=== PATIENT | female | born 1985 | race Asian ===

== ENCOUNTER 2023-10-01 17:41 | Emergency (ER) | payer OTHER, SELFPAY ==
[2023-10-01 17:43] VITALS: BP 126/79
--- NOTE | 2023-10-01 18:34 | ED.GENMED ---
History of Present Illness
<Taisha Ferrera PA-C - Last Filed: 10/02/23 00:12>
General
Chief Complaint: Vaginal Bleeding
Source: patient
Exam Limitations: none
Time Seen by Provider: 10/01/23 18:34
Nursing documentation reviewed up to this point in time: agreed with
Travel History
Have you had any contact with someone who has COVID-19?: No
Do you have any symptoms of coronavirus? Fever > 100 degrees, chills, cough, shortness of breath, sore throat, loss of taste or smell, muscle aches, or headache?: No
History of Present Illness
History of Present Illness:
Patient is a 38-year-old female at presumed 6 weeks gestation presenting for evaluation of vaginal bleeding. Patient states that she has had light vaginal bleeding for the past 3 weeks which she initially thought was the onset of her menses.
Patient states that bleeding is light in quantity and not saturating through pads. She then over the past week developed mild nausea in the morning and some lower abdominal cramping. She took an at home test this past Thursday which was
positive. She called her CONCEPT ARTIST who scheduled her for 3 weeks.
Patient denies any significant nausea or vomiting. Patient denies any fever, chills. Patient denies any chest pain, shortness of breath, dizziness. Patient denies any urinary symptoms.
Patient states that her last menstrual period was mid August. Patient denies any history of STI/STDs
Patient has had 1 many years ago with a section delivery. She has had 1 miscarriage in 2016 at around 4 weeks gestation.
Patient has followed with [facility] CONCEPT ARTIST in the past.
Past History
<Taisha Ferrera PA-C - Last Filed: 10/02/23 00:12>
Past History
ED Past Medical History: None
ED Past Surgical History:
Social History
Tobacco: Non-smoker
Alcohol: None
Drug: None
Personal:
Living: with family
Employment: Employed
Family History
Family History: Other (Noncontributory)
Review of Systems
<Taisha Ferrera PA-C - Last Filed: 10/02/23 00:12>
Review of Systems
Allergies reviewed?: Yes
All Other Systems: ROS reviewed and negative except as documented in HPI and ROS
Phy Exam
<Taisha Ferrera PA-C - Last Filed: 10/02/23 00:12>
Physical Exam
Physical Exam:
Vitals: Patient's vital signs are stable. Afebrile
General: Patient is well appearing, no acute distress
Skin: Warm and dry, no rashes or lesions
Head: Normocephalic, atraumatic
Eyes: Sclera nonicteric. EOMs intact. No nystagmus. Moist mucous membranes.
Throat: Protecting airway
Neck: Normal ROM, no cervical spine tenderness, no meningismus
Cardiac: Regular rate and rhythm, no murmurs.
Pulm: Normal respiratory effort, no wheezes, rales, rhonchi heard on exam.
Abdomen: Abdomen soft. Very mild suprapubic tenderness without rebound tenderness or guarding. No CVA tenderness
Extremities: No evidence of cyanosis or edema. DP pulses palpable and equal bilateral
Neuro: AAOx3. CN II-XII intact. No focal neurologic deficits.
Psychiatric: Normal affect.
Course
<Taisha Ferrera PA-C - Last Filed: 10/02/23 00:12>
Orders/Labs/Results
Orders:
Orders
10/01/23 18:40
Test Result ONCE
10/01/23 18:47
Type+Screen Urgent
Beta HCG Quantitative Urgent
Is this a screen?: No
Comment: ADD ON
Beta Hcg Serum Qualitative Screen [HCG, Serum Qualitative Screen] Urgent
Complete Blood Count/With Diff Urgent
Comprehensive Metabolic Panel Urgent
10/01/23 19:32
0.9% Sodium Chloride 1000 ml [Nss] 1,000 ml IV BOLUS
10/01/23 19:36
US W Transvaginal Urgent
Comment: approx 4-6 weeks by LMP
Reason For Exam: vaginal bleeding, lower abdomen pain
10/01/23 19:39
Add On- LAB Urgent
Tests Added?: HCG Quantitative
Abnormal Lab Results
10/01/23
18:47
RBC 3.64 L 10^6/uL
(4.20-5.40)
Hgb 11.1 L g/dL
(12.0-16.0)
Hct 32.8 L %
(37.0-47.0)
MPV 11.0 H fL
(7.4-10.4)
Creatinine 0.5 L mg/dL
(0.6-1.0)
10/01/23 18:47
10/01/23 18:47
Vital Signs
Initial and Last Documented VS:
Initial Vital Signs
Temp Pulse Resp BP Pulse Ox
98.3 F 80 16 126/79 100
10/01/23 17:43 10/01/23 17:43 10/01/23 17:43 10/01/23 17:43 10/01/23 17:43
Last Documented Vital Signs
Temp Pulse Resp BP Pulse Ox
98.3 F 74 18 109/68 100
10/01/23 17:43 10/01/23 21:27 10/01/23 21:27 10/01/23 21:27 10/01/23 21:27
Sarahlt;Rich Nam, DO - Last Filed: 10/01/23 23:30>
Orders/Labs/Results
Orders:
Orders
10/01/23 18:40
Test Result ONCE
10/01/23 18:47
Type+Screen Urgent
Beta HCG Quantitative Urgent
Is this a screen?: No
Comment: ADD ON
Beta Hcg Serum Qualitative Screen [HCG, Serum Qualitative Screen] Urgent
Complete Blood Count/With Diff Urgent
Comprehensive Metabolic Panel Urgent
10/01/23 19:32
0.9% Sodium Chloride 1000 ml [Nss] 1,000 ml IV BOLUS
10/01/23 19:36
US W Transvaginal Urgent
Comment: approx 4-6 weeks by LMP
Reason For Exam: vaginal bleeding, lower abdomen pain
10/01/23 19:39
Add On- LAB Urgent
Tests Added?: HCG Quantitative
Abnormal Lab Results
10/01/23
18:47
RBC 3.64 L 10^6/uL
(4.20-5.40)
Hgb 11.1 L g/dL
(12.0-16.0)
Hct 32.8 L %
(37.0-47.0)
MPV 11.0 H fL
(7.4-10.4)
Creatinine 0.5 L mg/dL
(0.6-1.0)
10/01/23 18:47
10/01/23 18:47
Vital Signs
Initial and Last Documented VS:
Initial Vital Signs
Temp Pulse Resp BP Pulse Ox
98.3 F 80 16 126/79 100
10/01/23 17:43 10/01/23 17:43 10/01/23 17:43 10/01/23 17:43 10/01/23 17:43
Last Documented Vital Signs
Temp Pulse Resp BP Pulse Ox
98.3 F 74 18 109/68 100
10/01/23 17:43 10/01/23 21:27 10/01/23 21:27 10/01/23 21:27 10/01/23 21:27
<Taisha Ferrera PA-C - Last Filed: 10/02/23 00:12>
MDM/Problems Addressed
Differential Diagnosis Includes:
Not limited to: Threatened , missed , ectopic , subchorionic hemorrhage, complete
MDM/Problems Addressed:
Patient is a 38-year-old female at an estimated 6 weeks gestation presenting with persistent light vaginal bleeding and lower abdominal cramping. No fever, chills, chest pain, shortness of breath, dizziness/lightheadedness. Vital signs are stable.
Physical exam as above. Patient is extremely well-appearing in no apparent distress. She does have very mild suprapubic tenderness without any rebound tenderness or guarding. Labs show very mild anemia with hemoglobin of 11.1 which appears
chronic for patient. Otherwise no clinically significant abnormalities. hCG level of greater than 100,000. Ultrasound shows intrauterine at an estimated gestation of 7 weeks 3 days with a heart rate of 136. They did notice small 7 mm
subchorionic hemorrhage. This is likely the cause of the mild spotting. Patient's blood type is be positive-no indication for RhoGAM at this time.
Patient stable for discharge with CONCEPT ARTIST follow-up. Will instruct patient to refrain from heavy lifting and adhere to pelvic rest. Return precautions discussed at length. Patient will follow-up with CONCEPT ARTIST tomorrow.
Chronic conditions affecting care:
N/A
Acute Exacerbation and/or Progression of Chronic Illness:
N/A
<Taisha Ferrera PA-C - Last Filed: 10/02/23 00:12>
*Radiology
Radiology exam reviewed: radiology read reviewed
*Pulse Oximetry
Patient hypoxic: no
*EKG
Interpreted by ED Provider?: NA
*Vending Machine Mechanic Interpretation
Rate: Vending Machine Mechanic- N/A
*Critical Care Note
Total Time (30-74mins, 75-104mins- exclusive of procedures): Not Applicable
ED Attending Note
<Taisha Ferrera PA-C - Last Filed: 10/02/23 00:12>
-
Portions of this chart may have been created with voice recognition software.� Occasional wrong word or��sound alike� substitutions may have occurred due to the inherent limitations of voice recognition software.
<Rich Nam DO - Last Filed: 10/01/23 23:30>
ED Attending Note
Patient seen and examined by attending physician: Yes
I performed the substantive portion of visit, reviewed & personally made and approve the management plan that is documented in note by myself or ARMANDO.: Yes
ED Attending Note:
Patient is a 38-year-old female who is 3 para 1-0-1-1 who presents with lower abdominal pain and vaginal bleeding. Patient's had a positive test. Patient last period was August 08. Patient's been having spotting and cramping since
that time. Patient denies fever or chills, weakness or lightheadedness. Patient has minimal nausea but no vomiting or diarrhea. Patient denies any symptoms. On physical exam patient does not appear to be in any distress. Heart is regular
lungs are clear. Patient has minimal lower abdominal tenderness without guarding or rebound. Patient's quantitative hCG is over 100,000. Patient's ultrasound shows a subchorionic hemorrhage. Patient will be discharged to follow-up with her
mainframe systems programmer. Patient blood type is B+. Patient will be told no heavy lifting or vaginal intercourse.
Discharge Plan
Departure
Patient Disposition: Home (Routine Discharge)
Date of Disposition: 10/01/23
Time of Disposition: 22:32
Patient with high blood pressure during this ER visit?: No
Condition: Good
Covid-19: Not Applicable
Discharge Problem:
Vaginal bleeding in , Subchorionic hemorrhage in first trimester
Instructions: Bleeding in Early (DC), Subchorionic Bleeding
Prescriptions:
No Action
[facility]
amoxicillin-pot clavulanate 875 MG/125 MG tablet
1 tab PO Q12 Qty: 20 0RF
Referrals:
Ariane Mccauley MD [Active] - Next open appointment
Nicola Roach MD [Family Provider] -
Activity Restrictions/Additional Instructions:
RETURN TO THE EMERGENCY DEPARTMENT WITH ANY WORSENING VAGINAL BLEEDING, SEVERE ABDOMINAL PAIN, INTRACTABLE NAUSEA/VOMITING, DIZZINESS, LIGHTHEADEDNESS, SHORTNESS OF BREATH, WORSENING IN CURRENT SYMPTOMS, OR ANY OTHER CONCERNS
-it is important to stay well-hydrated. Monitor your symptoms closely and return promptly with any acute worsening or change in symptoms. You can take Tylenol for any discomfort.
-As discussed�it is imperative that you follow-up with your CONCEPT ARTIST promptly for further evaluation/management. You should call them tomorrow for earliest appointment.
Interventions
Interventions:
*Risk Screen - Suicide Last Done: 10/01/23 19:46
*General Assessment Last Done: 10/01/23 19:46
*Neglect/Abuse Screening Last Done: 10/01/23 19:46
ED- Fall Risk Assessment Last Done: 10/01/23 19:48
*ED COVID-19 Vaccine History Last Done: 10/01/23 19:46
*Nursing Disposition Last Done: 10/01/23 22:42
ED-Female Genitourinary Assessment Last Done: 10/01/23 18:51
Discharge Date and Time
Discharge Date/Time: 10/01/23 22:43
Print Language: ROMANIAN
[2023-10-01 18:58] LABS: % Basophils 0.3 % (0-2); % Eosinophils 0.8 % (0-6); % Immature Granulocytes 0.2 % (0-0.5); % Lymphocytes 25.2 % (20.5-51.1); % Monocytes 6.3 % (1.7-9.3); % Neutrophils 67.2 % (42.2-75.2); Absolute Eosinophils 0.1 10^3/uL (0-0.7); Absolute Lymphocytes 1.6 10^3/uL (1.2-3.4); Absolute Monocytes 0.4 10^3/uL (0.1-0.6); Absolute Neutrophils 4.3 10^3/uL (1.4-6.5); Hematocrit 32.8 % (37.0-47.0); Hemoglobin 11.1 g/dL (12.0-16.0); Mean Corp Hgb Conc. 33.8 g/dL (33.0-37.0); Mean Corpuscular Hgb 30.5 pg (27.0-31.0); Mean Corpuscular Volume 90.1 fL (81.0-99.0); Nucleated Red Blood Cells % 0 %; Platelet Count 162 10^3/uL (130-400); Red Blood Cell Count 3.64 10^6/uL (4.20-5.40); Red Cell Dist. Width 11.6 % (11.5-14.5); White Blood Cell Count 6.5 10^3/uL (4.8-10.8)
[2023-10-01 19:16] LABS: HCG, Serum Qualitative Screen Positive
[2023-10-01 19:18] LABS: ALT (SGPT) 17 U/L (0-35); AST (SGOT) 26 U/L (14-36); Albumin 4.5 g/dl (3.5-5.0); Alkaline Phosphatase 43 U/L (38-126); Blood Urea Nitrogen 10 mg/dl (7-17); Calcium 9.8 mg/dl (8.4-10.2); Carbon Dioxide 23 mmol/L (22-30); Chloride 103 mmol/L (98-107); Glucose 89 mg/dl (70-99); Potassium 3.7 mmol/L (3.5-5.1); Sodium 136 mmol/L (135-145); Total Bilirubin 0.4 mg/dl (0.2-1.3); Total Protein 7.8 g/dl (6.3-8.2); eGFR > 60.00
[2023-10-01] MEDS: NSS 1000 IV (19:44)
[2023-10-01 19:46] VITALS: BMI 24.2
[2023-10-01 21:27] VITALS: BP 109/68
== END 2023-10-01 22:43 | disposition home or self-care (01) ==
LOC: EMR 17:41
PROVIDERS: Physician Assistant; EMERGENCY PHYSICIAN Emergency Medicine; FAMILY PHYSICIAN Internal Medicine
DX: O26.891 Other specified pregnancy related conditions, first trimester (principal); O20.8 Other hemorrhage in early pregnancy; Z3A.01 Less than 8 weeks gestation of pregnancy; O99.011 Anemia complicating pregnancy, first trimester; O99.281 Endocrine, nutritional and metabolic diseases complicating pregnancy, first trimester; R10.30 Lower abdominal pain, unspecified; E03.9 Hypothyroidism, unspecified; Z87.440 Personal history of urinary (tract) infections; Z88.2 Allergy status to sulfonamides; Z88.8 Allergy status to other drugs, medicaments and biological substances
CPT/HCPCS: 99284; 76801; 76817; 80053; 84702; 84703; 85025; 86850; 86900; 86901

== ENCOUNTER 2024-08-22 22:44 | Emergency (ER) | payer OTHER, SELFPAY ==
[2024-08-22 22:44] VITALS: BMI 29.8
[2024-08-22 22:47] VITALS: BP 133/98
[2024-08-22 23:01] LABS: % Basophils 0.6 % (0-2); % Eosinophils 3.3 % (0-6); % Immature Granulocytes 0.1 % (0-0.5); % Lymphocytes 39.3 % (20.5-51.1); % Monocytes 7.4 % (1.7-9.3); % Neutrophils 49.3 % (42.2-75.2); Absolute Eosinophils 0.2 10^3/uL (0-0.7); Absolute Lymphocytes 2.8 10^3/uL (1.2-3.4); Absolute Monocytes 0.5 10^3/uL (0.1-0.6); Absolute Neutrophils 3.5 10^3/uL (1.4-6.5); Hemoglobin 13.2 g/dL (12.0-16.0); Mean Corpuscular Hgb 30.2 pg (27.0-31.0); Mean Corpuscular Volume 91.5 fL (81.0-99.0); Mean Platelet Volume 9.9 fL (7.4-10.4); Nucleated Red Blood Cells % 0 %; Platelet Count 261 10^3/uL (130-400); Red Blood Cell Count 4.37 10^6/uL (4.20-5.40); Red Cell Dist. Width 11.6 % (11.5-14.5)
[2024-08-22 23:16] LABS: HCG, Serum Qualitative Screen Negative
[2024-08-22 23:19] LABS: ALT (SGPT) 51 U/L (0-35); AST (SGOT) 36 U/L (14-36); Albumin 5.4 g/dl (3.5-5.0); Alkaline Phosphatase 87 U/L (38-126); Blood Urea Nitrogen 28 mg/dl (7-17); Calcium 10.8 mg/dl (8.4-10.2); Carbon Dioxide 29 mmol/L (22-30); Chloride 102 mmol/L (98-107); Glucose 87 mg/dl (70-99); Potassium 4.7 mmol/L (3.5-5.1); Sodium 144 mmol/L (135-145); Total Bilirubin 0.5 mg/dl (0.2-1.3); Total Protein 9.3 g/dl (6.3-8.2); eGFR > 60.00
[2024-08-23 00:54] VITALS: BP 112/72
[2024-08-23 01:00] VITALS: BP 113/72
--- NOTE | 2024-08-23 01:53 | ED.GENMED ---
History of Present Illness
General
Chief Complaint: Headache
Source: patient
Exam Limitations: none
Time Seen by Provider: 08/23/24 01:40
Nursing documentation reviewed up to this point in time: agreed with
History of Present Illness
History of Present Illness:
This is a 39-year-old female with history of hypothyroidism, maintained on Synthroid. She presents with acute headache that began around 10 PM tonight. Headache began while she was working on her computer, completing a presentation for tomorrow.
Headache associated with a sensation of some numbness of the distal and inferior aspect of her tongue but no other associated symptoms, no visual difficulty, no nausea nor vomiting, no diaphoresis, no sore throat, no chest pain or palpitations. No
history of similar headaches in the past.
She has not taken anything for discomfort. Headache was initially generalized, now primarily right sided. Continues with moderate headache, unchanged.
Last menstrual period more than 1 year ago after the of her last child 1 year ago. She continues to nurse.
Her only daily medication is levothyroxine.
She does admit to mild nasal congestion over the past several days, occasional sneezing but no fever nor chills. No sore throat. No difficulty swallowing. Tongue numbness has improved now she only notices mild numbness distal aspect of her
tongue. She does not appreciate a sense of swelling of her tongue.
BP was mildly elevated at home with systolic of 141.
Past History
Past History
ED Past Medical History: Hypothyroidism
ED Past Surgical History:
Social History
Tobacco: Non-smoker
Alcohol: None
Drug: None
Personal:
Living: with family
Employment: Employed
Family History
Family History: Other (Noncontributory)
Phy Exam
Physical Exam
Physical Exam:
GENERAL: This is a 39-year-old woman who appears her stated age, bright and alert, pleasant, easily communicative and in no acute distress. is accompanying.
EYE: pupils equal and reactive. Extraocular muscles intact. Discs are sharp bilaterally. Anicteric
NECK: Supple, nontender, no meningismus, no significant adenopathy.
ENT: posterior pharynx is clear, oral mucosa is moist. Tongue appears mildly edematous anteriorly along with with mild sublingual edema. No abrasion, no palpable tenderness. TM clear b/l, nares patent.
CARDIAC: Regular rate and rhythm. no murmur.
LUNGS: Clear breath sounds bilaterally, no acute respiratory distress, no wheezes/rales/rhonchi
ABDOMEN: Soft, nondistended, without focal tenderness, no r/g, no cvat. normoactive BS.
NEUROLOGICAL: Alert and oriented x3, no focal neuro deficits. Gait is ivory and steady.
SKIN: Warm and dry, normal color, skin intact. No rash.
MUSCULOSKELETAL: No C/C/E. peripheral pulses are full and equal b/l. No palpable tenderness.
PSYCH: Normal and appropriate interaction.
Course
Orders/Labs/Results
Orders:
Orders
08/22/24 22:50
Test Result ONCE
08/22/24 22:54
Complete Blood Count/With Diff Urgent
Comprehensive Metabolic Panel Urgent
HCG, Serum Qualitative Screen Urgent
08/23/24 01:50
CT Head & Neck Angio W/wo IV Urgent
Comment:
Reason For Exam: acute severe h/a w tongue numbness/swelling
08/23/24 01:53
0.9% Sodium Chloride 1000 ml [Nss] 1,000 ml IV BOLUS
Diphenhydramine [Benadryl] 25 mg IV NOW STA
Prochlorperazine [Compazine] 10 mg IV NOW STA
Abnormal Lab Results
08/22/24
22:54
BUN 28 H mg/dl
(7-17)
Calcium 10.8 H mg/dl
(8.4-10.2)
ALT 51 H U/L
(0-35)
Total Protein 9.3 H g/dl
(6.3-8.2)
Albumin 5.4 H g/dl
(3.5-5.0)
08/22/24 22:54
08/22/24 22:54
Vital Signs
Initial and Last Documented VS:
Initial Vital Signs
Temp Pulse Resp BP Pulse Ox
98 F 75 16 133/98 100
08/22/24 22:47 08/22/24 22:47 08/22/24 22:47 08/22/24 22:47 08/22/24 22:47
Last Documented Vital Signs
Temp Pulse Resp BP Pulse Ox
98 F 75 16 115/71 98
08/22/24 22:47 08/22/24 22:47 08/22/24 22:47 08/23/24 02:00 08/23/24 03:45
MDM/Problems Addressed
Differential Diagnosis Includes:
Acute onset headache, concern for migraine headache, subarachnoid hemorrhage, mass, tension headache, CVA.
Noted to have mild numbness of her tongue and tongue appears mildly edematous anteriorly as well as mild sublingual edema however patient herself does not appreciate a sense of tongue swelling. There is no evidence of angioedema.
Overall well in appearance, nontoxic in appearance. No focal neurodeficits.
Will treat for potential migraine with a dose of Compazine and Benadryl. IV fluids.
Due to acute onset of headache, tongue numbness will check CTA/CT of the head and neck.
*Radiology
Radiology exam reviewed: radiology read reviewed
*Pulse Oximetry
Patient hypoxic: no
*Critical Care Note
Total Time (30-74mins, 75-104mins- exclusive of procedures): Not Applicable
Update Note
Update Note:
04:30
Patient resting comfortably.
Headache has resolved.
She denies tongue numbness and continues to deny sensation of swelling of her tongue.
CTA/CT of the head and neck are unremarkable.
I suspect tension headache versus migraine headache.
Will discharge to home with recommendations for prompt follow-up with PCP for recheck.
Strict return precautions discussed.
ED Attending Note
-
Portions of this chart may have been created with voice recognition software.� Occasional wrong word or��sound alike� substitutions may have occurred due to the inherent limitations of voice recognition software.
Discharge Plan
Departure
Patient Disposition: Home (Routine Discharge)
Date of Disposition: 08/23/24
Time of Disposition: 04:30
Patient with high blood pressure during this ER visit?: No
Condition: Good
Discharge Problem:
Acute headache
Instructions: Headache, Adult (DC)
Prescriptions:
No Action
[facility]
amoxicillin-pot clavulanate 875 MG/125 MG tablet
1 tab PO Q12 Qty: 20 0RF
Referrals:
Nicola Roach MD [Family Provider] - Call in 1-3 days for appt
Interventions
Interventions:
*Risk Screen - Suicide Last Done: 08/22/24 22:50
*General Assessment Last Done: 08/23/24 01:16
*Neglect/Abuse Screening Last Done: 08/22/24 22:50
*ED- Fall Risk Assessment Last Done: 08/23/24 01:15
*ED COVID-19 Vaccine History Last Done: 08/23/24 01:15
ED- Neurological Assessment Last Done: 08/23/24 01:15
Discharge Date and Time
Print Language: MACEDONIAN
[2024-08-23 02:00] VITALS: BP 115/71
[2024-08-23] MEDS: NSS 1000 IV (02:22)
[2024-08-23] MEDS: COMPAZINE 10 MG IV (02:24)
[2024-08-23] MEDS: BENADRYL IV ×2 (02:25→02:32)
[2024-08-23] MEDS: BENADRYL 25 MG IV (02:36)
[2024-08-23 04:00] VITALS: BP 99/62
== END 2024-08-23 05:04 | disposition home or self-care (01) ==
LOC: EMR 22:44
PROVIDERS: Emergency Medicine; EMERGENCY PHYSICIAN Emergency Medicine; FAMILY PHYSICIAN Internal Medicine
DX: R51.9 Headache, unspecified (principal); E03.9 Hypothyroidism, unspecified; Z79.899 Other long term (current) drug therapy
CPT/HCPCS: 99284; 96374; 96375; 96361; 70496; 70498; 80053; 84703; 85025; Q9967